=== PATIENT | male | born 1980 | race Caucasian/White ===

== ENCOUNTER 2023-03-12 10:37 | Outpatient (CLI) | payer OTHER, SELFPAY ==
--- NOTE | ~2023-03-12 | MR_ITS ---
EXAMINATION: MR orbits face neck wo/w con, MR brain/brain stem wo/w con DATE: 03/12/2023 12:13 INDICATION: Optic neuritis TECHNIQUE: 1. Magnetic resonance imaging (MRI) of the brain and brainstem was performed without intravenous cont rast. Sequences included sagittal and axial T1-weighted SE, axial diffusion-weighted FS SE, axial T2* -weighted GRE, axial 3D SWAN, axial T2-weighted FLAIR, and axial T2-weighted FSE. Postcontrast axial and coronal T1-weighted FSE was obtained. Apparent diffusion coefficient (ADC) maps were created. 2. MRI of the orbits was performed without and with 20 mL Multihance intravenous contrast utilizing t he same contrast bolus. Small [id number]-[id number] sequences of the orbits included coronal and axial T2-lucy ghted FS FSE, T1-weighted FSE and postcontrast T1-weighted FS FSE. COMPARISON: None. FINDINGS: Brain MR: There are no areas of restricted diffusion to suggest acute infarction. No intracranial hemorrhage or abnormal intracranial mass lesion. There are no intraparenchymal signal abnormalities seen on the ot her pulse sequences. The ventricles are symmetric and normal in size. There are no abnormal extra-axi al fluid collections. The right cerebellar tonsil is low-lying extending 3 mm caudal to the level of the inferior margin of the foramen magnum. The left cerebellar tonsil is at the level of the caudal m argin of the foramen magnum. Flow voids are seen in the cerebral arteries on the T2-weighted sequence s consistent with their expected patency. There are no areas of abnormal enhancement on the post cont rast images. Orbits MR: There is increased fluid within the bilateral optic sheaths which measure 7 mm maximal diameter bilat erally immediately deep to the optic disc and 5 mm in maximal diameter bilaterally which is the upper limits of normal measured in standard position 8 mm proximal to the optic discs. This can be seen wi th papilledema and increased intracranial pressure orbits appear otherwise normal with no evident thi ckening, increased signal or enhancement of the bilateral optic nerves. Pituitary appears unremarkabl e. No abnormal lesions at the patent suprasellar cistern normal appearing optic chiasm. There is mild mucosal thickening in the bilateral anterior ethmoid sinuses. IMPRESSION: 1. Increased fluid in the bilateral optic nerve sheaths which could be seen with increased intracrani al pressures and papilledema. Correlate with funduscopic exam. No evident increased T2 signal or enha ncement along the normal-appearing optic nerves to suggest optic neuritis. 2. Mildly low-lying cerebellar tonsils extend 3 mm caudal to the inferior margin of the foramen magnu m. Otherwise normal brain MR. Reviewed, dictated and finalized at location A. IMPRESSION: 1. Increased fluid in the bilateral optic nerve sheaths which could be seen wit h increased intracranial pressures and papilledema. Correlate with funduscopic exam. No evident increased T2 signal or enhancement along the normal-appearing optic nerves to suggest optic neuritis. 2. Mildly low-lying cerebellar tonsils extend 3 mm caudal to the inferior justin n of the foramen magnum. Otherwise normal brain MR.
== END 2023-03-12 10:38 | disposition home or self-care (01) ==
PROVIDERS: PCP Family Medicine; Visit Provider Family Medicine
DX: H46.9 Unspecified optic neuritis (principal); R93.0 Abnormal findings on diagnostic imaging of skull and head, not elsewhere classified
CPT/HCPCS: 70543; 70553; A9577

== ENCOUNTER 2024-03-23 15:42 | Outpatient (CLI) | payer OTHER, SELFPAY ==
--- NOTE | ~2024-03-23 | XR_ITS ---
EXAM: XR knee LT min 4V DATE: 03/23/2024 16:14 HISTORY: M17.32 - Unilateral post-traumatic osteoarthritis, left knee . COMPARISON: 05/01/2023, images only. FINDINGS: Normal mineralization. No fracture or dislocation. No lytic or blastic lesion. Severe late ral compartment narrowing. Tricompartmental osteophytosis, moderate in the patellofemoral and lateral compartments. No erosion or periosteal change. Soft tissues within normal limits. Small volume joint fluid. IMPRESSION: Tricompartmental left knee osteoarthritis, severe in the lateral compartment. Small joint effusion. Reviewed, dictated and finalized at location K. IMPRESSION: Tricompartmental left knee osteoarthritis, severe in the lateral co mpartment. Small joint effusion.
== END 2024-03-23 15:43 | disposition home or self-care (01) ==
LOC: ANHIMG 15:44
PROVIDERS: PCP Family Medicine; Visit Provider Orthopaedic Surgery
DX: M17.32 Unilateral post-traumatic osteoarthritis, left knee (principal); M25.462 Effusion, left knee
CPT/HCPCS: 73564

== ENCOUNTER 2024-09-30 00:22 | Day surgery (SDC) | payer OTHER, SELFPAY ==
[2024-09-25 11:37] VITALS: BMI 34.9
--- OUTSIDE RECORDS SUMMARY | 2024-09-30 00:24 | XMS_ITS | Continuity of Care Document ---
Author Organization [facility] Address [address] [place] [address] Phone Care Team Providers Care Airport Duty Manager Name Role Phone Katty Simons MD Unavailable Unavailabl e Advance Directives Directive Yes / No Effective Date File Name No Information Encounters Encounter Description Practice Location Reason(s) For Visit Diagnoses Date Provider Providers Copied on Encounter [facility], [address], [place], [place], [id number] , tel: [phone] Lane ABDMNAL PAIN GENERALIZED Sep-0 8-200 4 Ronak Katty. [address] [place], [place], [id number]. tel:[phone] [facility], [address], [place], [place], [address] , tel: [phone] Lane OTITIS MEDIA NOS Mar-0 1-200 4 Conversion Doctor. [facility] [place], [address], . [facility], [address], [place], [place], [address] , tel: [phone] Lane PYOGENIC GRANULOMA Fabricio-1 6-200 3 Conversion Doctor. [facility] [place], [address], [place]. [facility], [address], [place], [place], [address] , tel: [phone] Lane DERMATITIS NEC Feb- 9-200 3 Conversion Doctor. [facility] [place], [address], . [facility], [address], [place], [place], [address] , tel: [phone] Lane DISLOC ACROMIOCLAVIC-CL October- 4-200 2 Ronak Comerh. [address] [place], [place], [id number]. tel:[phone] [facility], [address], [place], [place], [address] , tel: [phone] Lane ACUTE TONSILLITISMALAISE AND FATIGUE NEC Nov- 6-200 1 Simons Katty. [address] [place], [place], [id number]. tel:[phone] Family History Family Member Type Diagnosis Age At Onset No Information Payers Payer name Insurance type Covered alliance party ID Authoriza tion(s) No Information Social History Type Description Quantity Date Captured Comments Sex Male Smoking Status No Information Chief Complaint And Reason For Visit No Information Reason For Referral Reason For Referral No Information History Of Present Illness Encounter Date Complaint History Of Prese nt Illness No Information Functional Status Date Functional Assessmen t No Information Instructions Date Instruction Additional Infor mation No Information Assessments Type Assessment Date No Information Patient Care Teams Name Effective Dates (start - stop) Status Members No Information
--- OUTSIDE RECORDS SUMMARY | 2024-09-30 00:24 | XMS_ITS | Referral Summary ---
Author Organization [facility] Address [address] [place] [address] Care Team Providers Care Syrup Maker Cook Name Role Phone Dilip Kirkpatrick DO Primary Care Provider + Allergies No known active allergies Medications amLODIPine (NORVASC) 5 mg tablet TAKE 1 TABLET BY MOUTH DAILY 90 tablet 3 01/22/2023 Active olmesartan (BENICAR) 40 mg tablet TAKE 1 TABLET BY MOUTH DAILY 90 tablet 1 02/04/2023 Active LORazepam (ATIVAN) 0.5 mg tabletIndicatio ns:Anxiety TAKE 1 TABLET(0.5 MG) BY MOUTH EVERY 8 HOURS NEEDED FOR ANXIETY 90 tablet 1 03/15/2023 Active buPROPion XL (WELLBUTRIN XL) 150 mg 24 hr tablet Take 1 tablet (150 mg total) by mouth daily 90 tablet 07/29/2023 Active Active Problems Problem Noted Date Diagnosed Date 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 Patient does not feel that symptoms have changed OS. No symptoms OD. MRI brain / orbits from 03/12/2023 reviewed and did not show increased T2 signal or enhancement along the optic nerves. NMO/MOG testing negative. Exam today with one line worsening of visual acuity and enlarging central scotoma on HVF. Overall, we would expect a typical optic neuritis to demonstrate enhancement on MRI and also to show improvement by 6 weeks from onset of symptoms, not mild worsening. The differential still includes an autoimmune optic neuritis that is following an atypical course, but this does raise concern for other etiologies. We will plan to send additional bloodwork today including RPR/FTA, FLORENCIA, and ROOPA to rule out syphilis, sarcoidosis, or rheumatologic etiology. In addition, his presentation is also concerning for possible Luis E's Hereditary Optic Neuropathy. We discussed the pathogenesis and prognosis of this disease and asked that he call us if he begins to develop symptoms in the fellow eye. We will look into insurance coverage of genetic testing for LHON. RTC 6 weeks with repeat OCTs and HVFs. Optic neuritis 03/12/2023 Assessment & Plan (03/15/2023 11:30 AM CDT): 42 y/o man with HTN and anxiety referred by Christina Bazzi OD ([facility]) for concern for optic neuritis OS. Patient presenting with central scotoma OS starting around 2 weeks ago (03/01/2023) with stable symptoms since then. Mild pain with eye movement. No symptoms OD. No symptoms of increased ICP. Exam with decreased vision to 20/70, +APD, decreased color plates, and optic disc edema OS. Normal exam OD. HVF on 03/08/2023 showed a central scotoma OS, wnl OD. Repeat payan today showed some improvement. MRI brain and orbits w/wo contrast was performed on 03/12/2023 and reportedly showed increased fluid in the bilateral optic nerve sheaths but no increased T2 signal or enhancement along the optic nerves, but images are not available. We are trying to obtain these images for our review. Overall, history and exam are consistent with optic neuritis, most likely typical optic neuritis, less likely NMO or MOG. MRI reportedly with no evidence of MS; discussed with patient that the risk of developing MS in the future is around 20%. Discussed that prognosis is likely near-complete recovery of vision over the next few months and that steroid treatment will not improve final visual outcome. Patient is already 2 weeks out with signs of improvement, so utility of steroid treatment at this time is likely low unless NMO or MOG antibodies are positive. Plan: - NMO/MOG serologies - will work on obtaining MRI images - RTC 4-6 weeks with repeat testing - patient to call with any worsening symptoms Assessment & Plan (03/12/2023 8:44 AM CDT): He has seen Ophthalmology he is had a thorough exam. The working diagnosis is optic neuritis left eye. He has central vision loss. I discussed the case with the boot and shoe laborer on 2 occasions. I have been asked by Ophthalmology to order MRI of the brain and orbits. I will order this stat. New issue Fluid level behind tympanic membrane of left ear 01/09/2023 Assessment & Plan (01/09/2023 5:07 PM CDT): Prednisone 20 mg daily 5 days Anxiety 01/02/2021 Assessment & Plan (01/02/2021 8:04 AM CDT): Add [facility] Annual physical exam 11/12/2018 Assessment & Plan (07/05/2022 9:06 AM TORCH HEATER): Chart reviewed Routine lab Assessment & Plan (01/02/2021 8:00 AM CDT): cbc Chem 7 Lipid lft tsh a1c Assessment & Plan (11/17/2019 3:53 PM CDT): lab Assessment & Plan (11/12/2018 4:38 PM CDT): Routine lab Hyperlipidemia 09/25/2016 Assessment & Plan (03/12/2023 8:44 AM CDT): Patient is well controlled. Continue current treatment. Essential hypertension 08/13/2016 Assessment & Plan (03/12/2023 8:44 AM CDT): Blood pressure is stable today Assessment & Plan (11/17/2019 3:52 PM CDT): Patient is well controlled. Continue current treatment. Assessment & Plan (11/12/2018 4:43 PM CDT): Patient is well controlled. Continue current treatment. Immunizations Immunization Administration Dates Next Due Influenza, Unspecified 07/05/2022(Deferr ed: Patient Refused),04/03/2022(Deferred: Patient Refused) Social History Tobacco Use Types Packs/Day Years Used Date Smoking Tobacco: Never Smokeless Tobacco: Never Tobacco Cessation:Counseling Given: Not Answered Alcohol Use Standard Drinks/Week Comments Yes 0 (1 standard drink = 0.6 oz pur e alcohol) AUDIT-C Answer Date Recorded Q1: How often do you have a drink containing alc ohol? Monthly or less 04/17/2023 Average Number of Drinks Not on file 023 Frequency of Binge Drinking Not on file 03/25 PHQ-2 Answer Date Recorded PHQ-2 Total Score (If total score is 3 or more points, staff should administer the PHQ-9) 0 07/05/2022 Sex and Gender Information Value Date Recorded Sex Assigned at Not on file Legal Sex Male 6:31 PM TORCH HEATER Gender Identity Not on file Sexual Orientation Not on file Last Filed Vital Signs Vital Sign Reading Time Taken Comments Blood Pressure 114/96 07/30/2023 2:29 PM TORCH HEATER Pulse 75 07/30/2023 2:29 PM TORCH HEATER Temperature 36.8 C (98.2 F) 07/30/2023 2:29 PM TORCH HEATER Respiratory Rate 14 07/30/2023 2:29 PM TORCH HEATER Oxygen Saturation 95% 07/30/2023 2:29 PM TORCH HEATER Inhaled Oxygen Concentration - - Weight 104.3 kg (230 lb) 07/21/2023 12:20 PM TORCH HEATER Height 172.7 cm (5' 8 ) 07/21/2023 12:20 PM TORCH HEATER Body Mass Index 34.97 07/21/2023 12:20 PM TORCH HEATER Plan of Treatment Not on file Insurance [facility] CHOICE PLUS [facility] HMO/PPO Address: [address] [place] [address] [facility]/PPO Address: [address] [place] [address] [facility] H[facility]/PPO Address: [address] [place] [address] Care Teams Syrup Maker Cook Relationship Specialty Start Date End Date Dilip Kirkpatrick DO PCP - General Family Medicine 10/14/18
--- OUTSIDE RECORDS SUMMARY | 2024-09-30 00:24 | XMS_ITS | Encounter Summary ---
Author Organization [facility] Address [address] [place] [address] Phone Care Team Providers Care Fishing Boat Mate Name Role Phone Dilip Kirkpatrick DO Primary Care Provider + Reason for Referral * Diagnostic Imaging (Routine) - Closed Specialty Diagnoses / Procedures Referred By Contac t Referred To Contact Diagnoses Optic neuritis Optic neuritis, left Optic neuropathy, left Procedures OCT, Retina - OU - Both Eyes Jerel Etienne MD [address] [place] [address] Phone: tel: fax: [facility] (All Locations) Referral ID Status Reason Start Date Expiration Date Visits Re quested Visits Authorized [id number] Closed 07/23/2023 08/21/2024 1 1 SHER MACHINE * Diagnostic Imaging (Routine) - Closed Specialty Diagnoses / Procedures Referred By Contac t Referred To Contact Diagnoses Optic neuritis Optic neuritis, left Optic neuropathy, left Procedures OCT, Optic Nerve - OU - Both Eyes Jerel Etienne MD [address] [place] [address] Phone: tel: fax: [facility] (All Locations) Referral ID Status Reason Start Date Expiration Date Visits Re quested Visits Authorized [id number] Closed 07/23/2023 08/21/2024 1 1 SHER MACHINE * Diagnostic Imaging (Routine) - Closed Specialty Diagnoses / Procedures Referred By Werner nelson Referred To Contact Diagnoses Optic neuritis Optic neuritis, left Optic neuropathy, left Procedures Morgan Visual Field - OU - Both Eyes Jerel Etienne MD [address] [place] [address] Phone: tel: fax: [facility] (All Locations) Referral ID Status Reason Start Date Expiration Date Visits Re quested Visits Authorized [id number] Closed 07/23/2023 08/21/2024 1 1 SHER MACHINE Encounter Details Date Type Department Care Team (Late st Contact Info) Description 07/23/2023 Orders Only [facility] Ophthalmology [address] [place] [address] 6[address] [place] [address] Jerel Etienne MD [address] [place] [address] [phone] Optic neuritis (Primary Dx); Optic neuritis, left; Optic neuropathy, left Social History Tobacco Use Types Packs/Day Years Used Date Smoking Tobacco: Never Smokeless Tobacco: Never Alcohol Use Standard Drinks/Week Comments Yes 0 [...] on file Legal Sex Male 6:31 PM FINISHER MACHINE Gender Identity Not on file Sexual Orientation Not on file documented as of this encounter Plan of Treatment Not on file documented as of this encounter Procedures Procedure Name Priority Date/Time Associated Diagnosis Comments MORGAN VISUAL FIELD - OU - BOTH EYES Routine 09/12/2023 1:09 PM CDT Optic neuritis Optic neuritis, left Optic neuropathy, left documented in this encounter Results * OCT, Retina - OU - Both Eyes (09/12/2023 1:10 PM CDT) Central Macular Thickness OS 232 mircometers CONTINUUM Central Macular Thickness OD 260 micrometers CONTINUUM Anatomical Region Laterality Modality Head Other Narrative 09/12/2023 2:20 PM CDT Right Eye Quality was good. Scan locations included subfoveal. Progression has been stable. Findings include normal foveal contour. Macular thickness was 260 micrometers. Left Eye Quality was good. Scan locations included subfoveal. Progression has been stable. Findings include normal foveal contour. Macular thickness was 232 mircometers. Notes GCL OD: 84 OS: 44 Normal macular thickness both eyes, stable. Stable and normal ganglion cell layer thickness right eye (OD). Severe ganglion cell layer (GCL) thinning OS. Stable but possible segmentation failure. Jerel Etienne MD OPH TOMOGRAPHY Fin al Result * Morgan Visual Field - OU - Both Eyes (09/12/2023 1:09 PM CDT) Pattern Deviation OS 6.88 dB CONTINUUM Pattern Deviation OD 1.68 db CONTINUUM Mean Deviation OS -31.08 dB CONTINUUM Mean Deviation OD 0.43 dB CONTINUUM Anatomical Region Laterality Modality Head Other Narrative 09/12/2023 2:18 PM CDT Right Eye Fixation was good. Cooperation was good. Reliability was good. Progression has been stable. Foveal threshold was normal. Mean Deviation was 0.43 dB. Pattern Deviation was 1.68 db. Left Eye Fixation was good. Cooperation was good. Reliability was good. Progression has improved. Foveal threshold was reduced. Mean Deviation was -31.08 dB. Pattern Deviation was 6.88 dB. Notes Stable and normal right eye (OD). Severe generalized depression OS with temporal clearing. Mildly improved Jerel Etienne MD OPHTH VISUAL FIELD F inal Result * OCT, Optic Nerve - OU - Both Eyes (09/12/2023 1:08 PM CDT) RNFL OS 66 micrometers CONTINUUM RNFL OD 96 micrometers CONTINUUM Anatomical Region Laterality Modality Head Other Narrative 09/12/2023 2:20 PM CDT Right Eye Reliability was good. Average RNFL thickness 96 micrometers. Left Eye Reliability was good. Average RNFL thickness 66 micrometers. Notes Stable and normal retinal nerve fiber layer thickness right eye (OD). Moderate, diffuse retinal nerve fiber layer thinning OS, polar pattern. Progressive thinning since prior scan. Jerel Etienne MD OPHTH TOMOGRAPHY Fin al Result documented in this encounter Visit Diagnoses Diagnosis Optic neuritis- Primary Unspecified optic neuritis Optic neuritis, left Unspecified optic neuritis Optic neuropathy, left Other optic neuritis Optic neuritis Unspecified optic neuritis Optic neuritis, left Unspecified optic neuritis Optic neuropathy, left Other optic neuritis documented in this encounter Care Teams Fishing Boat Mate Relationship Specialty Start Date End Date Dilip Kirkpatrick DO PCP - General Family Medicine 10/14/18 documented as of this encounter
--- OUTSIDE RECORDS SUMMARY | 2024-09-30 00:25 | XMS_ITS | Clinical Summary ---
Author Organization [facility] at [facility] Address [address] [place] [address] Care Team Providers Care Hospital Coordinator Name Role Phone Dilip Kirkpatrick DO Primary [...] and anxiety referred by Christina Bazzi OD ([facility]) for concern for optic neuritis OS. [...] loss. I discussed the case with the client engagement specialist on 2 occasions. I have been asked by Ophthalmology to order MRI of the brain and orbits. I will order this stat. New issue Fluid level behind tympanic membrane of left ear 01/09/2023 Assessment & Plan (01/09/2023 5:07 PM CDT): Prednisone 20 mg daily 5 days Anxiety 01/02/2021 Assessment & Plan (01/02/2021 8:04 AM CDT): Add [facility] Annual physical exam 11/12/2018 Assessment & Plan (07/05/2022 9:06 AM MANUFACTURE SPECIALIST): Chart reviewed Routine lab Assessment & Plan [...] Unspecified 07/05/2022(Deferr ed: Patient Refused),04/03/2022(Deferred: Patient Refused) Surgical History Surgery Date Site/Laterality Comments VASECTOMY WRIST SURGERY 06/24/2012 - 06/23/2013 LUMBAR PUNCTURE WO INJECTION , DIAGNOSTIC 07/30/2023 N/A Medical History Medical History Date Comments HTN (hypertension) Hyperlipidemia Annual physical exam Anxiety Family History Medical History Relation Name Comments Colon cancer Maternal Grandmother Hypertension Mother Relation Name Status Comments Father Alive Maternal Grandmother Mother Alive Social History Tobacco Use Types Packs/Day Years [...] on file Legal Sex Male 6:31 PM MANUFACTURE SPECIALIST Gender Identity Not on file Sexual Orientation Not on file Obstetrics History Last Filed Vital Signs Vital Sign Reading Time Taken Comments Blood Pressure 114/96 07/30/2023 2:29 PM MANUFACTURE SPECIALIST Pulse 75 07/30/2023 2:29 PM MANUFACTURE SPECIALIST Temperature 36.8 C (98.2 F) 07/30/2023 2:29 PM MANUFACTURE SPECIALIST Respiratory Rate 14 07/30/2023 2:29 PM MANUFACTURE SPECIALIST Oxygen Saturation 95% 07/30/2023 2:29 PM MANUFACTURE SPECIALIST Inhaled Oxygen Concentration - - Weight 104.3 kg (230 lb) 07/21/2023 12:20 PM MANUFACTURE SPECIALIST Height 172.7 cm (5' 8 ) 07/21/2023 12:20 PM MANUFACTURE SPECIALIST Body Mass Index 34.97 07/21/2023 12:20 PM MANUFACTURE SPECIALIST Plan of Treatment Health Maintenance Due Date Last Done Comments Colon Cancer Screening-Colonoscopy 1979 Hepatitis C Screening 1979 DTaP/Tdap/Td Vaccine (1 - Tdap) 1990 Hepatitis B Screening 1997 Depression Screening 07/05/2023 07/05/2022, 01/02/2021, 11/12/2018 Regular Well Visit/Exam 18-64 07/05/2023 07/05/2022, 01/02/2021, 01/02/2021, Additional history exists Influenza Vaccine (#1) 2024 HPV Vaccines Aged Out No longer eligi ble based on patient's age to complete this topic Pneumococcal vaccine <65 Aged Out No longer eligible based on patient's age to complete this topic Insurance [employer] CHOICE PLUS U[employer] CHOICE PLUS Member Subscriber Plan / Payer (Ef fective 2022-Present) Name:Carroll Chin Relation to Subscriber:Self Name:Carroll Chin Payer ID:[id number] (NAIC) Type:[facility] HMO/PPO Address: [place] [id number] [place] [id number] [facility] [place] [address] Care Teams Hospital Coordinator Relationship Specialty Start Date End Date Dilip Kirkpatrick DO PCP - General Family Medicine 10/14/18
--- OUTSIDE RECORDS SUMMARY | 2024-09-30 00:25 | XMS_ITS | Data Portability ---
Author Organization [facility] Address [address] [place] [address] Assessment No assessment recorded. Plan of Treatment Reminders Order Date Submit Date Provider Last Modified By Organization Details Last Modified Time Details Appointments ANY 15 2025 08:00A Pratik Kirkpatrick, DO Not available Not available Not available Lab vitamin B12, serum 2024 025 [facility], [address], [place], [address], 09/22/2024 02:30:24 vitamin D, 25-hydrox y, total, serum 2024 025 [facility], [address], [place], [address], 09/22/2024 02:30:25 PSA, serum or plasma 2024 025 [facility], [place], [address], 09/22/2024 02:30:24 lipid panel, serum 2024 025 [facility], [place], [address], 09/22/2024 02:30:19 hepatic function panel, serum 2024 025 [facility], [place], [address], 09/22/2024 02:30:22 CBC w/ auto diff 2024 025 [employer] [facility], [address], [place], [address], 09/22/2024 02:30:23 BMP, serum or plasma 2024 025 [employer] [facility], [address], [place], [address], 09/22/2024 02:30:21 TSH + free T4, serum 2024 025 [employer] [facility], [address], [place], [address], 09/22/2024 02:30:20 Referral gastroent erologist referral 2024 025 [facility], [address] [facility] [address], [place], [address], 09/16/2024 14:08:36 Procedures None recorded. Surgeries None recorded. Imaging None recorded. Medication Orders olmesarta n 40 mg tablet 2024 025 [facility], [address], [address], [place], [place], [id number], 09/16/2024 09:55:41 amlodipin e 5 mg tablet 2024 025 [email or web address] [facility], [address] [place] [address], [address], [place], [place], [id number], 09/16/2024 09:55:41 Patient TargetsNo targets recorded. Patient Instructions Encounter Date Encounter Id Patient Instructions Last Modified By Organization Details Last Modified Time 09/16/2024 [id number] A healthy lifestyle: care instructions Not available 09/16/2024 09:28:50 Reason for Referral Fisher [facility] Net Referral for Screening for malignant neoplasm of colon Referring Physician: Dilip [place], Family Medicine, Encounter Date: 09/16/2024 Results Created Date Observation Date Name Description Value Unit Range Abnormal Flag Note LastModifiedBy Organization Detail LastModifiedTime 09/22/1909/22/2024 LIPID PANEL , STAND ANGLE cholesterol, total 160 mg/dL <200 normal Not Available [facility] [address] [address] [place], [address], 09/22/2024 02:30:19 09/22/1909/22/2024 LIPID PANEL , STAND ANGLE HDL cholesterol 45 mg/dL > or = 40 normal Not Available [facility] [address] [address] [place], [address], 09/22/2024 02:30:19 09/22/1909/22/2024 LIPID PANEL , STAND ANGLE triglyceride s 117 mg/dL <150 normal Not Available [facility] [address] [address] [place], [address], 09/22/2024 02:30:19 09/22/1909/22/2024 LIPID PANEL , STAND ANGLE LDL-choleste rol 94 mg/dL _(reymundo c) normal Refer ence range : <100 Pastor able range <100 mg/dL for prima ry preve ntion ; <70 mg/dL for patie nts with CHD or diabe tic patie nts with > or = 2 CHD risk facto rs. LDL-C is now calcu lated using the Samantha n-Hop kins rere oneal n, which is a valid ated novel jes calderon accur acy than the Fried aura equat ion in the estim ation of LDL-C . Samantha ray SS et al. MANUELITO. 2013; 310(1 9): 2061- 2068 (http ://ed ucati on.Qu Ran perez tics. com/f aq/FA Q164) Not Available [facility] [address] [place], [address], 09/22/2024 02:30:19 09/22/1909/22/2024 LIPID PANEL , STAND ANGLE chol/HDLC ratio 3.6 (calc ) <5.0 normal Not Available [address], [address], 09/22/2024 02:30:19 09/22/19 25 09/22/2024 LIPID PANEL , STAND ANGLE non HDL cholesterol 115 mg/dL _(reymundo c) <130 normal For patie nts with diabe laura plus 1 major ASCVD risk facto r, treat ing to a non-H DL-C goal of <100 mg/dL (LDL- C of <70 mg/dL ) is consi dered a thera peuti c optio n. Not Available [address], [address], 09/22/2024 02:30:19 09/22/19 25 09/22/2024 TSH+F REE T4 TSH 3.37 mIU/L 0.40-4 .50 normal Not Available [address], [address], 09/22/2024 03:13:50 09/22/1909/22/2024 TSH+F REE T4 T4, free 1.1 NG/dL 0.8-1. 8 normal Not Available [address], [address], 09/22/2024 03:13:50 09/22/19 25 09/22/2024 BASIC METAB OLIC PANEL glucose 77 mg/dL 65-99 normal Fasti ng refer ence inter loren Not Available [address], [address], 09/22/2024 02:30:21 09/22/19 25 09/22/2024 BASIC METAB OLIC PANEL urea nitrogen (BUN) 16 mg/dL 7-25 normal Not Available [address], [address], 09/22/2024 02:30:21 09/22/19 25 09/22/2024 BASIC METAB OLIC PANEL creatinine 0.90 mg/dL 0.60-1 .29 normal Not Available [address], [address], 09/22/2024 02:30:21 09/22/19 25 09/22/2024 BASIC METAB OLIC PANEL eGFR 107 mL/mi n/1.7 3m2 > or = 60 normal Not Available [address], [address], 09/22/2024 02:30:21 09/22/1909/22/2024 BASIC METAB OLIC PANEL BUN/creatini ne ratio SEE NOTE: (calc ) 6-22 Not Repor jaron: BUN and Creat inine are withi n refer ence range . Not Available [address], [address], 09/22/2024 02:30:21 09/22/19 25 09/22/2024 BASIC METAB OLIC PANEL sodium 138 mmol/ L 135-14 6 normal Not Available [address], [address], 09/22/2024 02:30:21 09/22/19 25 09/22/2024 BASIC METAB OLIC PANEL potassium 4.4 mmol/ L 3.5-5. 3 normal Not Available [address], [address], 09/22/2024 02:30:21 09/22/19 25 09/22/2024 BASIC METAB OLIC PANEL chloride 103 mmol/ L 98-110 normal Not Available [address], [address], 09/22/2024 02:30:21 09/22/19 25 09/22/2024 BASIC METAB OLIC PANEL carbon dioxide 27 mmol/ L 20-32 normal Not Available [address], [address], 09/22/2024 02:30:21 09/22/19 25 09/22/2024 BASIC METAB OLIC PANEL calcium 9.3 mg/dL 8.6-10 .3 normal Not Available [address], [address], 09/22/2024 02:30:21 09/22/19 25 09/22/2024 HEPAT IC FUNCT ION PANEL protein, total 6.8 g/dL 6.1-8. 1 normal Not Available [address], [address], 09/22/2024 02:30:22 09/22/19 25 09/22/2024 HEPAT IC FUNCT ION PANEL albumin 4.6 g/dL 3.6-5. 1 normal Not Available [address], [address], 09/22/2024 02:30:22 09/22/19 25 09/22/2024 HEPAT IC FUNCT ION PANEL globulin 2.2 g/dL_ (calc ) 1.9-3. 7 normal Not Available [address], [address], 09/22/2024 02:30:22 09/22/19 25 09/22/2024 HEPAT IC FUNCT ION PANEL albumin/glob ulin ratio 2.1 (calc ) 1.0-2. 5 normal Not Available [address], [address], 09/22/2024 02:30:22 09/22/19 25 09/22/2024 HEPAT IC FUNCT ION PANEL bilirubin, total 0.6 mg/dL 0.2-1. 2 normal Not Available [address], [address], 09/22/2024 02:30:22 09/22/19 25 09/22/2024 HEPAT IC FUNCT ION PANEL bilirubin, direct 0.1 mg/dL < or = 0.2 normal Not Available [address], [address], 09/22/2024 02:30:22 09/22/19 25 09/22/2024 HEPAT IC FUNCT ION PANEL bilirubin, indirect 0.5 mg/dL _(reymundo c) 0.2-1. 2 normal Not Available [address], [address], 09/22/2024 02:30:22 09/22/19 25 09/22/2024 HEPAT IC FUNCT ION PANEL alkaline phosphatase 58 U/L 36-130 normal Not Available [facility] [employer] [address], [address], 09/22/2024 02:30:22 09/22/1909/22/2024 HEPAT IC FUNCT ION PANEL AST 18 U/L 10-40 normal Not Available [address], [address], 09/22/2024 02:30:22 09/22/19 25 09/22/2024 HEPAT IC FUNCT ION PANEL ALT 23 U/L 9-46 normal Not Available [address], [address], 09/22/2024 02:30:22 09/22/1909/22/2024 CBC (INCL UDES DIFF/ PLT) white blood cell count 6.4 thous and/u L 3.8-10 .8 normal Not Available [address], [address], 09/22/2024 02:30:23 09/22/19 25 09/22/2024 CBC (INCL UDES DIFF/ PLT) red blood cell count 5.17 wayne on/uL 4.20-5 .80 normal Not Available [address], [address], 09/22/2024 02:30:23 09/22/1909/22/2024 CBC (INCL UDES DIFF/ PLT) hemoglobin 14.6 g/dL 13.2-1 7.1 normal Not Available [address], [address], 09/22/2024 02:30:23 09/22/1909/22/2024 CBC (INCL UDES DIFF/ PLT) hematocrit 45.3 % 38.5-5 0.0 normal Not Available [facility] [address], [address], 09/22/2024 02:30:23 09/22/19 25 09/22/2024 CBC (INCL UDES DIFF/ PLT) MCV 87.6 fL 80.0-1 00.0 normal Not Available [address], [address], 09/22/2024 02:30:23 09/22/1909/22/2024 CBC (INCL UDES DIFF/ PLT) MCH 28.2 pg 27.0-3 3.0 normal Not Available [address], [address], 09/22/2024 02:30:23 09/22/1909/22/2024 CBC (INCL UDES DIFF/ PLT) MCHC 32.2 g/dL 32.0-3 6.0 normal For adult s, a sligh t decre ase in the calcu lated MCHC value (in the range of 30 to 32 g/dL) is most likel y not clini britt signi sue t; yumiko er, it shoul d be inter prete d with cauti on in corre latio n with other red cell walter eters and the patie nt's clini reymundo condi tion. Not Available [address], [address], 09/22/2024 02:30:23 09/22/19 25 09/22/2024 CBC (INCL UDES DIFF/ PLT) RDW 12.2 % 11.0-1 5.0 normal Not Available [address], [address], 09/22/2024 02:30:23 09/22/19 25 09/22/2024 CBC (INCL UDES DIFF/ PLT) platelet count 342 thous and/u L 140-40 0 normal Not Available [address], [address], 09/22/2024 02:30:23 09/22/19 25 09/22/2024 CBC (INCL UDES DIFF/ PLT) MPV 9.9 fL 7.5-12 .5 normal Not Available [address], [address], 09/22/2024 02:30:23 09/22/19 25 09/22/2024 CBC (INCL UDES DIFF/ PLT) absolute neutrophils 3469 cells /uL 1500-7 800 normal Not Available [address], [address], 09/22/2024 02:30:23 09/22/19 25 09/22/2024 CBC (INCL UDES DIFF/ PLT) absolute lymphocytes 1984 cells /uL 850-39 00 normal Not Available [address], [address], 09/22/2024 02:30:23 09/22/19 25 09/22/2024 CBC (INCL UDES DIFF/ PLT) absolute monocytes 614 cells /uL 200-95 0 normal Not Available [address], [address], 09/22/2024 02:30:23 09/22/19 25 09/22/2024 CBC (INCL UDES DIFF/ PLT) absolute eosinophils 224 cells /uL 15-500 normal Not Available [address], [address], 09/22/2024 02:30:23 09/22/19 25 09/22/2024 CBC (INCL UDES DIFF/ PLT) absolute basophils 109 cells /uL 0-200 normal Not Available [address], [address], 09/22/2024 02:30:23 09/22/19 25 09/22/2024 CBC (INCL UDES DIFF/ PLT) neutrophils 54.2 % normal Not Available [address], [address], 09/22/2024 02:30:23 09/22/19 25 09/22/2024 CBC (INCL UDES DIFF/ PLT) lymphocytes 31.0 % normal Not Available [address], [address], 09/22/2024 02:30:23 09/22/19 25 09/22/2024 CBC (INCL UDES DIFF/ PLT) monocytes 9.6 % normal Not Available [address], [address], 09/22/2024 02:30:23 09/22/19 25 09/22/2024 CBC (INCL UDES DIFF/ PLT) eosinophils 3.5 % normal Not Available [address], [address], 09/22/2024 02:30:23 09/22/1909/22/2024 CBC (INCL UDES DIFF/ PLT) basophils 1.7 % normal Not Available [address], [address], 09/22/2024 02:30:23 09/22/19 25 09/22/2024 VITAM IN B12 vitamin B12 579 pg/mL 200-11 00 normal Not Available [address], [address], 09/22/2024 05:43:03 09/22/19 25 09/22/2024 PSA, TOTAL PSA, total 0.64 NG/mL < or = 4.00 normal The total PSA value from this assay syste m is stand ardiz ed again st the WHO stand angle. The test resul t will be appro ximat stacey 20% lower when jean red to the equim olar- stand ardiz ed total PSA (Allen man Coult er). Jean rison of seria l PSA resul ts shoul d be inter prete d with this fact in mind. This test was perfo rmed using the Sieme ns chemi lumin escen t metho d. Value s obtai cely from diffe rent assay metho ds canno t be used inter middleton eably . PSA level s, regar dless of value , shoul d not be inter prete d as absol upper [place] evide nce of the prese nce or absen ce of disea se. Not Available [facility] [address] [place], [address], 09/22/2024 05:43:04 09/22/19 25 09/22/2024 VITAM IN D,25- OH,TO NICOLASA,I A vitamin D,25-oh,tota l,ia 26 NG/mL 30-100 low Vitam in D Statu s 25-OH Vitam in D: Defic iency : <20 ng/mL Insuf ficie ncy: 20 - 29 ng/mL Optim al: > or = 30 ng/mL For 25-OH Vitam in D testi ng on patie nts on D2-rivas pplem entat ion and patie nts for whom quant itati on of D2 and D3 fract ions is requi red, the [facility] Assur eD(TM ) 25-OH VIT D, (D2,D 3), LC/MS /MS is recom yinka d: order code 80915 (ash ents >2yrs ). See Note 1 Note 1 For addit ional infor marie cortez refer to http: //malika ray.Mookie stDia gnost ics.c om/fa q/FAQ 199 (This link is being provi ded for infor jeff nickerson/ cassie hernandez ses only. ) Not Available [facility] [address] [place], [address], 09/22/2024 05:43:06 Result Notes None recorded. Problems Name Problem SNOMED Code Status Onset Date Resolution Date Notes Provider Name and Address Organization Details Recorded Time Essential hypertensio n 58706123 Active 2023 Dilip Kirkpatrick DO Attn: Accounttabitha decker,[address] [facility], [place], [address], [place] [facility] 4 07:40:34 Dyslipidemi a 409664133 Active 2023 Dilip Kirkpatrick DO Attn: Accounttabitha g,[address] [facility], [place], [address], [place] [facility] 4 07:40:35 Generalized anxiety disorder 08515559 Active 2023 Dilip Kirkpatrick DO Attn: Accountin g,[address] [facility], [place], [address], [place] [facility] 4 07:40:36 History of optic neuritis 8928647553875 9104 Active 2023 Dilip Kirkpatrick DO Attn: Accountin g,[address] [facility], [place], [address], [place] [facility] 4 07:40:37 Obesity 648778364 Active 2024 Dilip Kirkpatrick DO Attn: Accountin g,[address] [facility], [place], [address], [place] [facility] 5 09:28:46 Problem Notes None recorded. Medical Equipment None Reported. Allergies No known drug allergies Medications Name Sig Start Date Stop Date Status Note LastModified by Organization Details LastModified Time amlodipine 5 mg tablet Take 1 tablet every day by oral route for 90 days. 025 active Not Available Not Available Not Avai lable lorazepam 0.5 mg tablet Take 2 tablets 3 times a day by oral route as needed for 30 days. active Not Available Not Available No t Available olmesartan 40 mg tablet Take 1 tablet every day by oral route for 90 days. 025 active Not Available Not Available Not Avai lable bupropion HCl XL 150 mg 24 hr tablet, extended release TAKE 1 TABLET BY MOUTH DAILY 025 active Not Available Not Available Not Avai lable Vitals Date Recorded Body height Body mass index (BMI) Body weight Provider Name and Address Organization Details Last Updated DateTime 09/16/2024 172.72 cm 37.1 kg/m2 781091.54 g Tameka Busch MA [facility] 09/16/2024 09:14:15 Date Recorded Systolic blood pressure Diastolic blood pressure Provider Name and Address Organization Details Last Updated DateTime 09/16/2024 128 mm[Hg] 82 mm[Hg] Dilip Kirkpatrick DO Attn: Accounting,[address] [place], [address], [facility] 09/16/2024 09:28:29 Social History Question Answer Notes LastModified by Organizat ion Details LastModified Time Tobacco Smoking Status Never Smoker Tameka Busch MA null, [facility] 09/16/2024 09:14:54 What Is Your Level Of Alcohol Consumption? Occasional Information not available 09/16/2024 What Is Your Level Of Caffeine Consumption? Occasional Information not available 09/16/2024 What Was The Date Of Your Most Recent Tobacco Screening? 09/16/2024 Information not available 09/16/2024 Do You Use Any Illicit Or Recreational Drugs? No Information not available 09/16/2024 Has Tobacco Cessation Counseling Been Provided? No Information not available 09/16/2024 Do You Or Have You Ever Used Any Other Forms Of Tobacco Or Nicotine? No Information not available 09/16/2024 Sex: Unknown Functional Status None recorded. Mental Status None recorded. Family History Nothing Reported. Medical History Condition Response Coronary Artery Disease N Other N Atrial Fibrillation N High Blood Pressure Y Depression Y COPD N Blood Clots N Anxiety Disorder Y Muscle, Joint, or Bone Problems N Arthritis N Acid Reflux (GERD) N Cancer N Stroke N ADHD N High Cholesterol N Liver Disease N Schizophrenia N Headaches N Kidney or Bladder Problems N Thyroid Problems N GI Problems N Have you had a mammogram in the last yea r? N Eating Disorder N Skin Problems N Anemia N Heart Attack ([place]) N Diabetes N Seizures/Epilepsy N Have you had a colonoscopy in the last 1 0 years? N Asthma N Allergies N Have you had a PSA blood test in the las t year? N Substance Abuse N Hepatitis N Osteoporosis N Heart Failure N Past Encounters Encounter ID Performer Location Encounter Start Date Encounter Closed Date Diagnosis/Indication Diagnosis SNOMED-CT Code Diagnosis ICD10 Code Diagnosis Note [id number] Dilip Kirkpatrick, DO [facility] [place] [address] [facility] [address] [place] [address] 09/16/2024 09:02:41 09/18/2024 14:35:41 Adult health examination 864850244 Z00.00 routine labcolonos copy History of optic neuritis 1729101182 5727848 Z86.69 lost 50% vision left eye Generalize d anxiety disorder 66222402 F41.1 chronic conditiona t goalloraze amanda .5 mgwellbutr in xl 150 mg daiily Essential hypertension 06483492 I10 chronic conditiono lmesartan 40 mg Dyslipidemia 182740677 E 78.5 chronic conditionh ealthy diet Obesity 344490438 E66.9 healthy dietexerci se Screening for malignant neoplasm of colon 687005304 Z12.11 Screening for malignant neoplasm of prostate 846742896 Z12.5 Health Concerns Section Related Observation LastModified by Organization Detai ls LastModified Time None Recorded Concern Status LastModified by Organization Details LastModified Time None Recorded Advance Directives Directive None Recorded Payers Encounter Date Sequence Insurance Name Policy Number Policy Grande Covered Member ID Grande Member ID Guarantor Name 09/16/2024 1 [facility] [id number] Carroll Chin [id number] Carroll Chin Notes Date Note Type Note Provider Name and Address Organization Details Recorded Time 09/16/2024 text/html establish [facility] Dilip Kirkpatrick DO Attn: [place], [address], [facility] 09/16/2024 09:56:37
[2024-09-30 09:18] VITALS: BP 119/83; PULSE 72; RESP 18; TEMP 36.4; O2SAT 99
--- NOTE | 2024-09-30 09:27 | WPDANESEPPF ---
Anes - Initial Pre Proc Eval Procedure: Operation Date: 09/30/24 10:30 Proposed Procedures p Screening Colonoscopy - Andrew Caruso MD Date/Time: 09/30/24 09:27 Surgeon: Andrew Caruso MD Pre Op Diagnosis: Encounter for screening for malignant neoplasm of Patient Data Age: 44 Gender: M Height: 1.73 m Weight: 106.1 kg Last Vital Signs Temp 36.4 C L 09/30/24 09:18 Pulse 72 09/30/24 09:18 Resp 18 09/30/24 09:18 BP 119/83 09/30/24 09:18 Pulse Ox 99 09/30/24 09:18 O2 Del Method Room Air 09/30/24 09:18 Allergies Allergy/AdvReac Type Severity Reaction Status Date / Time No Known Allergies Allergy Verified 09/30/24 09:17 Home Medications ?Medication ?Instructions ?Recorded ?Confirmed ?Type amlodipine 5 mg tablet 5 mg PO DAILY 05/01/23 09/30/24 History bupropion HCl 150 mg 24 hr tablet, 150 mg PO QAM 05/01/23 09/30/24 History extended release olmesartan 40 mg tablet 40 mg PO DAILY 05/01/23 09/30/24 History Patient hx anesthesia problems: none Family hx anesthesia problems: none Results Review: All pre-operative results and documents have been reviewed as part of the pre-operative evaluation. [facility], [facility] Past Medical History Medical History Right wrist fracture Family History Family History Other Carcinoma of colon Social History Social History Smoking status: Never smoker Alcohol intake: current Drinks per week: 2 Substance use: never Substance use type: does not use Do You Feel Safe in your Home?: Yes Lack of Transportation: No Lack of Food: Never True Current Housing: I Have Housing Concerned About Future Housing: No Difficulty Paying Gas/Electric Bills: No Difficulty Paying for Meds: No Currently Unemployed: No Education: High School Diploma/GED Difficulty w/ Childcare or Family Care: No Living arrangements: with family Anes - Eval Final PreProcedure Day of Procedure 09/30/24 09:27 Patient weight: obese Heart: regular rate and rhythm Lungs: clear to auscultation Airway: Mallampati scale class II Neurological: alert and oriented Last oral intake: >/= 8 hours ASA classification: II Emergent: no Anesthetic plan: proceed Anesthesia type and monitoring: general GIVS and standard monitoring Results Review: All pre-operative results and documents have been reviewed as part of the pre-operative evaluation. Informed Consent: The patient's anesthetic plan and its attendant risks and benefits were discussed with the patient/family/POA. Questions were solicited and answers provided to the satisfaction of the patient/family/POA.
[2024-09-30] MEDS: LACTATED RINGERS 1,000 ML 150 ML IV CONT (09:30)
--- NOTE | 2024-09-30 10:30 | P.HP_ITS ---
H&P: HPI History of Present Illness Date/Time: 09/30/24 10:30 Chief Complaint: Screening colonoscopy Narrative: This is the patient's first colonoscopy. There are no GI symptoms and there is no family history of colorectal cancer. Review of Systems Review of Systems: All systems reviewed & are unremarkable except as noted in HPI and below [facility] Past Medical History Medical History Right wrist fracture Family History Family History Other Carcinoma of colon Social History Social History Smoking status: Never smoker Alcohol intake: current Drinks per week: 2 Substance use: never Substance use type: does not use Do You Feel Safe in your Home?: Yes Lack of Transportation: No Lack of Food: Never True Current Housing: I Have Housing Concerned About Future Housing: No Difficulty Paying Gas/Electric Bills: No Difficulty Paying for Meds: No Currently Unemployed: No Education: High School Diploma/GED Difficulty w/ Childcare or Family Care: No Living arrangements: with family Meds Home Medications and Allergies Home Medications ?Medication ?Instructions ?Recorded ?Confirmed ?Type amlodipine 5 mg tablet 5 mg PO DAILY 05/01/23 09/30/24 History bupropion HCl 150 mg 24 hr tablet, 150 mg PO QAM 05/01/23 09/30/24 History extended release olmesartan 40 mg tablet 40 mg PO DAILY 05/01/23 09/30/24 History Allergies Allergy/AdvReac Type Severity Reaction Status Date / Time No Known Allergies Allergy Verified 09/30/24 09:17 Vital Signs Vital Signs - 24 hr 09/30/24 09:18 Temperature 97.5 F L Pulse Rate 72 Respiratory Rate 18 Blood Pressure 119/83 Pulse Oximetry 99 Oxygen Delivery Room Air Exam Const: General: cooperative and healthy appearing Resp: Effort & Inspection: normal respiratory effort and able to speak in complete sentences Auscultation: clear to auscultation bilaterally Cardio: Rate: regular rate Rhythm: regular rhythm GI: Inspection: normal to inspection GI Palp: No No hepatosplenomegaly present Auscultation: normal bowel sounds Rectal Exam: deferred Skin: General skin exam: normal color Psych: Appearance: grossly normal Mental Status: mental status grossly normal Assessment and Plan Assessment and plan (1) Encounter for screening colonoscopy: Code(s): Z12.11 - Encounter for screening for malignant neoplasm of colon Status: Acute Assessment and Plan: The patient is deemed a good candidate for the procedure. Consent signed. Will proceed.
[2024-09-30] MEDS: SIMETHICONE ORAL SUSPENSION 20 MG/0.3 ML 30 ML BOTTLE 0.6 ML IRRIGATION (10:44)
[2024-09-30 10:52] VITALS: BP 127/85; PULSE 80; RESP 20; O2SAT 100
[2024-09-30 11:02] VITALS: BP 139/74; PULSE 74; RESP 22; O2SAT 99
[2024-09-30 11:12] VITALS: BP 116/76; PULSE 71; RESP 19; O2SAT 100
== END 2024-09-30 11:22 | disposition home or self-care (01) ==
PROVIDERS: PCP Family Medicine; Referring Provider Family Medicine; Visit Provider Internal Medicine Gastroenterology
PROC: 0DJD8ZZ Inspection of Lower Intestinal Tract, Via Natural or Artificial Opening Endoscopic (ICD-10-PCS; CPT 45378; principal; 2024-09-30 10:30)
DX: Z12.11 Encounter for screening for malignant neoplasm of colon (principal); E66.9 Obesity, unspecified; Z68.35 Body mass index [BMI] 35.0-35.9, adult; Z80.0 Family history of malignant neoplasm of digestive organs
CPT/HCPCS: 45378; J2003; J2704; J7120